=== PATIENT | male | born 1945 | race Caucasian/White ===

== ENCOUNTER 2018-03-16 19:23 | Inpatient (IN) ==
[2018-03-17] MEDS ORDERED: Naloxone 0.4 MG/ML INJ IVP PRN (03:00)
[2018-03-17] MEDS ORDERED: *HR* Promethazine 25 MG/ML VIAL IVP PRN (03:00)
[2018-03-17] MEDS ORDERED: *HR* LORazepam 2 MG/ML VIAL IVP PRN (03:00)
--- NOTE | 2018-03-17 03:17 | Internal Med History&Physical ---
Date of Encounter: 03/17/18 Time of Encounter: 02:30 Internal Medicine - H&P: HPI Chief complaint: seizure Admitted From: Hospital to Hospital Transfer History of present illness: Mr. Soriano is a 73 year old male who presents in transfer from [facility] ER for concerns of new onset seizure. He was in the car with his while she was driving when he was noted to have a seizure as witnessed by his . Reportedly, she pulled over and squad was called and brought him to ER. He was postictal for the squad and the ER initially, but he returned back to baseline shortly after that in the ER. Patient was transferred to [facility] for further workup and care. Upon my assessment of the patient, he is alert, oriented, and in no distress. He denies any problems or concerns at present. However, he does not remember having a seizure and remembers waking up in the ER confused to why he was there and what happened. His med list is not verified, but he did confirm for me that he takes methadone and has been on methadone for quite some time. He is not clear as to what dose or frequency he takes it as prescribed. [facility], and we do not have access to any medical records at the present time. I reviewed his labs from [place] and note the macrocytosis and abnormal liver tests. He states he drinks alcohol heavily on a daily basis. He drinks a pint of liquor every day. However, he has gone almost 2 full days now since his last alcohol intake. He has gone through alcohol withdrawal in the past but he's never had a seizure before. He denies any headaches, fevers, chills, vomiting, diarrhea, numbness, weakness , or paralysis. He is wheelchair and bedridden. He does not have much function in his his left lower extremity due to old injury. He denies any prior old stroke. Past Med Surg Social Fam HX - Past Medical History Attestation: Yes The following information was validated with the patient. Source: patient, other ([facility] ER records) Medical history: COPD, diabetes, hyperlipidemia, hypertension, myocardial infarction Additional medical history: increasing general weakness over past few months, diet controlled dm Psychiatric history: anxiety, depression - Past Surgical History Surgical History: orthopedic, other Additional surgical history: back fusion, pelvis fx repair with plates,bilat shoulder replacements, - Social History Smoking Status: Current every day smoker Packs per day: 1 Smokeless Tobacco Status: No Alcohol use: heavy Drug use: none Current living situation: Home, With Family Activity Level: Wheelchair bound, Mostly sedentary Recent Out of Country Travel Within the Last 8 Weeks: No - Family History Father Name: Jose Armando Soriano Living Status: Age at : 62 Cause of : sudden [place] Internal Medicine - H&P: Meds Acetaminophen w/Cod 300-30 mg [Tylenol w/Codeine #3] 1 each PO Q6HR 03/16/18 [ History] Aspirin Enteric Coated [Aspirin EC] 325 mg PO DAILY 03/16/18 [History] Atorvastatin Calcium [Lipitor] 20 mg PO HS 03/16/18 [History] Diltiazem HCl [Diltiazem 24Hr Cd] 180 mg PO DAILY 03/16/18 [History] Finasteride [Proscar] 5 mg PO DAILY 03/16/18 [History] Folic Acid 1 mg PO DAILY 03/16/18 [History] Furosemide [Lasix] 40 mg PO DAILY PRN 03/16/18 [History] Lisinopril [Zestril] 20 mg PO DAILY 03/16/18 [History] Methadone 50 mg PO Q8HR 03/16/18 [History] Mirtazapine [Remeron] 22.5 mg PO HS 03/16/18 [History] Omeprazole [PriLOSEC] 20 mg PO DAILY 03/16/18 [History] PARoxetine HCl [Paroxetine HCl] 30 mg PO DAILY 03/16/18 [History] Ranolazine [Ranexa] 500 mg PO BID 03/16/18 [History] Tamsulosin HCl [Flomax] 0.4 mg PO DAILY 03/16/18 [History] Venlafaxine HCl [Venlafaxine HCl ER] 75 mg PO DAILY 03/16/18 [History] clonazePAM [Clonazepam] 1 mg PO DAILY PRN 03/16/18 [History] 3 Allergy/AdvReac Type Severity Reaction Status Date / Time pregabalin [From Lyrica] Allergy Hives Verified 03/16/18 17:28 - Constitutional Constitutional: no chills, no fever(s), no malaise - EENT Eyes: no blurry vision, no change in vision Ears: no ear pain, no tinnitus Nose, mouth and throat: no nasal congestion, no sinus pain, no sinus pressure, no sore throat - Cardiovascular Cardiovascular ROS IM: no chest pain, no dyspnea, no dyspnea on exertion, no lightheadedness, no palpitations - Respiratory Respiratory: no cough, no hemoptysis, no chest congestion, no excessive phlegm production, no change in phlegm color - Gastrointestinal Gastrointestinal: no abdominal pain, no diarrhea, no hematemesis, no hematochezia, no melena, no vomiting - Genitourinary Genitourinary ROS male: no dysuria, no flank pain, no hematuria - Musculoskeletal Musculoskeletal ROS IM: arthralgias, back pain - Integumentary Integumentary IM: no rash, no jaundice - Neurological Neurological ROS: convulsions, focal weakness (LLE -- chronic), no dizziness, no frequent falls, no numbness, no paresthesias, no tremor(s) - Psychiatric Psychiatric: no anxiety, no depression - Endocrine Endocrine IM: no polydipsia, no polyuria - Hematologic/Lymphatic Hematologic/Lymphatic: easy bruising - Allergic/Immunologic Allergic/Immunologic: no wheezing, no GI upset with certain foods - Constitutional Vitals: Temp Pulse Resp BP Pulse Ox 98.6 F 82 16 130/82 99 03/17/18 02:56 03/17/18 02:56 03/17/18 02:56 03/17/18 02:56 03/17/18 02:56 General appearance: Present: cooperative, A&O X 3, pleasant, no acute distress, answers questions appropriately Exam: see below - Head Head exam: Present: atraumatic, normal inspection - Eye Eye exam: Present: EOMI, PERRL. Absent: scleral icterus Pupils: Present: normal accommodation - ENT ENT exam: Present: mucous membranes dry, normal exam, normal oropharynx - Neck Neck exam general surgery: Present: full ROM, supple. Absent: tenderness, nuchal rigidity, thyromegaly - Respiratory Respiratory exam: Present: CTAB. Absent: chest wall tenderness, rales, respiratory distress, rhonchi, wheezes - Cardiovascular Cardiovascular exam: Present: RRR, +S1, +S2. Absent: diastolic murmur, systolic murmur - GI/Abdominal GI/Abdominal exam: Present: normal bowel sounds. Absent: hepatomegaly, rebound , splenomegaly, tenderness - Extremities Exam Extremities exam: Present: normal capillary refill, warm, radial pulses palpable and symmetrical. Absent: calf tenderness, full ROM (LLE contracted, weak), tenderness - Back Exam Back exam: Absent: CVA tenderness (L), CVA tenderness (R) - Neurological Exam Neurological exam: Present: alert, CN II-XII intact, motor sensory deficit (LLE weakness-- chronic), oriented X3 - Psychiatric Psychiatric exam: Present: normal affect, normal mood - Skin Skin exam: Present: dry, intact, warm Internal Med - H&P Results - Labs Labs: I reviewed the labs from [place] and include the following: WBC 9.9 Hemoglobin 9.6 Hematocrit 27.4 Platelets 217 Sodium 138 Potassium 3.7 Chloride 100 Carbon Dioxide 25 BUN 28 Creatinine 1.44 Glucose 122 Calcium 7.1 Mg 0.7 AST [address] -- negative - Assessment and plan (1) Seizure Current Visit: Yes Status: Acute Assessment and plan: 1. Suspect alcohol withdrawal seizure given that last alcohol intake was 2 days ago. 2. Will place in seizure precautions. 3. Will place on CIWA protocol and schedule Librium to avoid further withdrawal seizures. 4. Patient received Keppra load at [facility] ER. 5. Neurology consult. 6. MRI brain ordered. (2) Alcoholism Current Visit: Yes Status: Chronic Assessment and plan: 1. CIWA protocol ordered. 2. MVI/Thiamine/Folate ordered. 3. Librium as above. (3) Chronic pain Current Visit: Yes Status: Chronic Assessment and plan: 1. Patient on Methadone for years. Unsure of dose and frequency. 2. Need to confirm meds and dosing [facility] morning with [facility]. 3. Resume Methadone once confirmed. Qualifiers: Chronic pain type: other chronic pain Qualified Code(s): G89.29 - Other chronic pain (4) DVT prophylaxis Current Visit: Yes Status: Acute Assessment and plan: 1. Heparin SQ.
[2018-03-17] MEDS: 0.9 % Sodium Chloride 1,000 ML IVC SCH ×2 (04:09→15:57)
[2018-03-17 07:36] LABS: Basophils % 0.2 %; Eosinophils # 0.1 K/mcL (0.0-0.6); Eosinophils % 0.9 %; Hematocrit 26.6 % (37.5-50.1); Hemoglobin 8.9 g/dL (12.9-16.9); Immature Granulocytes % 0.5 % (0-4); Lymphocytes # 1.7 K/mcL (0.6-4.6); Lymphocytes % 21.4 %; Mean Corpuscular HGB Conc 33.5 g/dL (31.6-35.5); Mean Corpuscular Hemoglobin 36.9 pg (28.0-33.3); Mean Corpuscular Volume 110.4 fL (83.0-100.0); Mean Platelet Volume 10.4 fL (9.4-12.4); Monocytes # 1.1 K/mcL (0.0-1.3); Monocytes % 13.1 %; Neutrophils # 5.1 K/mcL (1.6-8.9); Platelet Count 200 K/mcL (140-400); Red Blood Count 2.41 M/mcL (4.19-5.50); Red Cell Distribution Width 17.6 % (11.5-14.5); Segmented Neutrophils % 63.9 %
[2018-03-17 07:43] LABS: INR 1.2; Prothrombin Time 13.7 Seconds (9.4-12.1)
[2018-03-17 07:45] LABS: Activated Partial Thrombo Time 31.3 Seconds (26.0-36.0)
[2018-03-17 07:57] LABS: Alanine Aminotransferase 34 Units/L (7-52); Albumin 2.5 g/dL (3.5-5.7); Albumin/Globulin Ratio 0.8 (1.1-2.2); Alkaline Phosphatase 123 Units/L (34-104); Aspartate Amino Transferase 48 Units/L (13-39); BUN/Creatinine Ratio 26 (6-26); Blood Urea Nitrogen 24 mg/dL (8-23); Calcium 7.1 mg/dL (8.6-10.3); Carbon Dioxide 26 mEq/L (23-29); Chloride 105 mEq/L (98-107); Glucose 73 mg/dL (70-105); Magnesium 1.4 mg/dL (1.6-2.6); Osmolality,Calculated 295 (280-300); Potassium 3.7 mEq/L (3.5-5.1); Sodium 141 mEq/L (136-145); Total Protein 5.5 g/dL (6.4-8.9); eGFR For Non-African Americans > 60 (> 60)
[2018-03-17 08:38] LABS: Anisocytosis 2+ (Not Present); Platelet Estimate Normal (Normal)
[2018-03-17] MEDS ORDERED: Clindamycin 900 MG/50 ML 900 MG/50 ML IV.SOLN IVPB ONE (10:03)
--- NOTE | 2018-03-17 11:41 | Neurology - Consult Note ---
Date of Encounter: 03/17/18 Time of Encounter: 11:40 Assessment and Plan (1) Seizure Current Visit: Yes Status: Acute 73 year old man with alcoholism, abnormal hepatic enzymes, HTN, depression who developed one episode of witnessed seizure by his , shortly after a small drink of alcohol beverage. Seizure itself lasted few minutes in duration and followed with 10-20 minutes postictal per his . Neurological status returned to his baseline and no focal neuro deficits noted. This could be complicated by his ongoing medical conditions and alcoholism but after discussion with his , especially with the fact that he had drunk one hour prior to the seizure i would suggest to start him on Keppra 500mg bid. He should have CT of head if not already done. Will obtain a routine EEG tomorrow morning. Patient has also significant anemia, currently being addressed by medical team. He is on DT prophylaxis. Please continue medical and supportive care History of Present Illness Chief complaint: seizure HPI: Mr. Soriano is a 73 year old male with PMH significant for chronic pain. HTN , alcoholism, abnormal liver enzymes, anemia, who was admitted to the hospital due to witnessed seizure activity. Patient is interviewed in the presence of his . states that they were in the car and was driving and suddenly she noticed that the patient had a can in his left hand and he lost it and then this was followed by arms drawing up and shaking with his eyes wide open and rolled back. He was shaking for about few minutes and the was confused for another 10-20 minutes prior to came to. He was evaluated at [place] ER and had CT of head. No acute changes noted, chronic ischemic changes noted. Patient was loaded keppra in the ER. states that the patient drank alcohol at 3:00pm and he had the seizure at about 4:00pm so she thinks that he is not in withdrawal. Currently patient is back to his mental baseline. Patient has developed weakness in his legs rapidly from able to walk normal to barely able to move his legs. He had MRI of whole spine at [place] few days and was seen by ortho who recommended that he sees a neurologist. Patient has significant anemia. Past Med Surg Social Fam HX - Past Medical History Medical history: COPD, diabetes, hyperlipidemia, hypertension, myocardial infarction Additional medical history: increasing general weakness over past few months, diet controlled dm Psychiatric history: anxiety, depression - Past Surgical History Surgical History: orthopedic, other Additional surgical history: back fusion, pelvis fx repair with plates,bilat shoulder replacements, - Social History Smoking Status: Current every day smoker Packs per day: 1 Smokeless Tobacco Status: No Alcohol use: heavy Drug use: none - Family History Father Name: Jose Armando Soriano Living Status: Age at : 62 Cause of : sudden CT Medications and Allergies Acetaminophen w/Cod 300-30 mg [Tylenol w/Codeine #3] 1 each PO Q6HR 03/16/18 [ History] Aspirin Enteric Coated [Aspirin EC] 325 mg PO DAILY 03/16/18 [History] Atorvastatin Calcium [Lipitor] 20 mg PO HS 03/16/18 [History] Diltiazem HCl [Diltiazem 24Hr Cd] 180 mg PO DAILY 03/16/18 [History] Finasteride [Proscar] 5 mg PO DAILY 03/16/18 [History] Folic Acid 1 mg PO DAILY 03/16/18 [History] Furosemide [Lasix] 40 mg PO BID PRN 03/16/18 [History] Lisinopril [Zestril] 20 mg PO DAILY 03/16/18 [History] Methadone 10 mg PO Q8HR 03/16/18 [History] Mirtazapine [Remeron] 22.5 mg PO HS 03/16/18 [History] Omeprazole [PriLOSEC] 20 mg PO DAILY 03/16/18 [History] PARoxetine HCl [Paroxetine HCl] 30 mg PO DAILY 03/16/18 [History] Ranolazine [Ranexa] 500 mg PO BID 03/16/18 [History] Tamsulosin HCl [Flomax] 0.4 mg PO DAILY 03/16/18 [History] Venlafaxine HCl [Venlafaxine HCl ER] 75 mg PO DAILY 03/16/18 [History] clonazePAM [Clonazepam] 1 mg PO DAILY PRN 03/16/18 [History] Baclofen [Lioresal] 10 mg PO BID 03/17/18 [History] Ferrous Sulfate [Iron] 325 mg PO DAILY 03/17/18 [History] Lactobacillus Acidophilus [Acidophilus] 1 cap PO DAILY 03/17/18 [History] Melatonin [Melatonin] 9 mg PO HS 03/17/18 [History] Multivitamin [One Daily Essential] 1 tab PO DAILY 03/17/18 [History] 3 Allergy/AdvReac Type Severity Reaction Status Date / Time pregabalin [From Lyrica] Allergy Hives Verified 03/17/18 11:33 All Systems: The remainder of the systems were reviewed and are negative Physical Examination - Vital Signs Vital Signs: Initial Vital Signs Temp Pulse Resp BP Pulse Ox 98.0 F 71 16 131/80 100 03/16/18 21:54 03/16/18 21:54 03/16/18 21:54 03/16/18 21:54 03/16/18 21:54 - Constitutional General appearance: chronically ill - Neurologic Sensorimotor examination: other (Grossly intact) Detailed motor examination: full strength in all major muscle groups Motor examination - right side: 5/5: deltoids, biceps, triceps, wrist flexion, wrist extension, golf ball inspector, hip flexors, tibialis Anterior, quadriceps, toe extension (EHL), plantarflexion Motor examination - left side: 5/5: deltoids, biceps, triceps, wrist flexion, wrist extension, hip flexors, golf ball inspector, quadriceps, tibialis Anterior, toe extension (EHL), plantarflexion Detailed sensory examination: other (Grossly intact) Reflexes: Biceps: 2+, Triceps: 2+, Brachioradialis: 2+, Patella: 2+, Achilles: 2 + Mental Status Examination: awake, alert, oriented to person, oriented to place, oriented to time, follows commands appropriately, answers questions appropriately, no agnosia, no aphasia, no aproxia Cranial nerve examination: PERRL, EOMI, visual maynard intact, corneal reflexes brisk symmetrically, sensory to face intact, mastication intact, no facial asymmetry is present, no dysarthria, hearing is intact symmetrically, soft palate elevates bilaterally upon phonation, gag reflex intact, flexes SCM and trapezius muscles symmetrically with full power, tongue protrudes midline, no atrophy or facial fasiculations present Results - Laboratory Findings CBC and BMP: 03/17/18 06:47 03/17/18 06:47 Abnormal lab findings: Abnormal lab results RBC 2.41 M/mcL (4.19-5.50) L 03/17/18 06:47 Hgb 8.9 g/dL (12.9-16.9) L 03/17/18 06:47 Hct 26.6 % (37.5-50.1) L 03/17/18 06:47 MCV 110.4 fL (83.0-100.0) H 03/17/18 06:47 MCH 36.9 pg (28.0-33.3) H 03/17/18 06:47 RDW 17.6 % (11.5-14.5) H 03/17/18 06:47 Anisocytosis 2+ (Not Present) A 03/17/18 06:47 PT 13.7 Seconds (9.4-12.1) H 03/17/18 06:47 BUN 24 mg/dL (8-23) H 03/17/18 06:47 Calcium 7.1 mg/dL (8.6-10.3) L 03/17/18 06:47 Magnesium 1.4 mg/dL (1.6-2.6) L 03/17/18 06:47 AST 48 Units/L (13-39) H 03/17/18 06:47 Alkaline Phosphatase 123 Units/L (34-104) H 03/17/18 06:47 Serum Total Protein 5.5 g/dL (6.4-8.9) L 03/17/18 06:47 Albumin 2.5 g/dL (3.5-5.7) L 03/17/18 06:47 Albumin/Globulin Ratio 0.8 (1.1-2.2) L 03/17/18 06:47 Consult Discharge Plan - Plan [facility]: [facility] [Primary Care Provider[facility] -
[2018-03-17] MEDS ORDERED: clonazePAM 1 MG TABLET PO PRN (12:36)
--- NOTE | 2018-03-17 12:44 | Event Note ---
Date of Encounter: 03/17/18 Time of Encounter: 12:41 Checking CBC and renal daily. Seen by neurology. Hx alcoholism. Continue librium and CIWA Anemia likely due to chronic ETOH. Will stool occult.
[2018-03-17] MEDS: *HR* Methadone 10 MG TABLET PO SCH (15:57)
[2018-03-17] MEDS: levETIRAcetam 250 MG TABLET PO SCH (17:22)
[2018-03-17] MEDS: Thiamine (B-1) 100 MG, Folic Acid 1 MG, MVI, adult with vitamin K 10 ML in 0.9 % Sodi... IVPB SCH (17:25)
[2018-03-17] MEDS: Mirtazapine 15 MG TABLET PO SCH (21:54)
[2018-03-17] MEDS: Ranolazine 500 MG TAB.ER.12H PO SCH (21:55)
[2018-03-17] MEDS: Melatonin 3 MG TABLET PO SCH (21:55)
[2018-03-17] MEDS: Baclofen 10 MG TABLET PO SCH (21:55)
[2018-03-18] MEDS: levETIRAcetam 250 MG TABLET PO SCH ×2 (05:51→17:06)
[2018-03-18 06:21] LABS: Basophils % 0.1 %; Eosinophils # 0.1 K/mcL (0.0-0.6); Eosinophils % 1.3 %; Hematocrit 26.6 % (37.5-50.1); Immature Granulocytes % 0.6 % (0-4); Lymphocytes # 1.4 K/mcL (0.6-4.6); Lymphocytes % 16.2 %; Mean Corpuscular HGB Conc 33.8 g/dL (31.6-35.5); Mean Corpuscular Hemoglobin 38.6 pg (28.0-33.3); Mean Corpuscular Volume 114.2 fL (83.0-100.0); Mean Platelet Volume 10.4 fL (9.4-12.4); Monocytes % 13.7 %; Neutrophils # 5.7 K/mcL (1.6-8.9); Platelet Count 182 K/mcL (140-400); Red Blood Count 2.33 M/mcL (4.19-5.50); Red Cell Distribution Width 17.2 % (11.5-14.5); Segmented Neutrophils % 68.1 %
[2018-03-18 06:28] LABS: Monocytes # 1.2 K/mcL (0.0-1.3)
[2018-03-18 06:37] LABS: Albumin 2.3 g/dL (3.5-5.7); BUN/Creatinine Ratio 21 (6-26); Blood Urea Nitrogen 15 mg/dL (8-23); Calcium 7.2 mg/dL (8.6-10.3); Carbon Dioxide 26 mEq/L (23-29); Chloride 108 mEq/L (98-107); Glucose 83 mg/dL (70-105); Osmolality,Calculated 288 (280-300); Phosphorous 1.7 mg/dL (2.7-4.5); Potassium 3.3 mEq/L (3.5-5.1); Sodium 139 mEq/L (136-145); eGFR For Non-African Americans > 60 (> 60)
[2018-03-18 06:48] LABS: Anisocytosis 1+ (Not Present); Hypochromasia Present (Not Present); Macrocytosis Present (Not Present); Microcytosis Present (Not Present); Platelet Estimate Normal (Normal); Polychromasia 1+ (Not Present)
[2018-03-18] MEDS: Ranolazine 500 MG TAB.ER.12H PO SCH ×2 (07:25→20:37)
[2018-03-18] MEDS: *HR* Methadone 10 MG TABLET PO SCH ×4 (07:26→23:16)
[2018-03-18] MEDS: Finasteride 5 MG TABLET PO SCH (07:26)
[2018-03-18] MEDS: Lisinopril 20 MG TABLET PO SCH (07:26)
[2018-03-18] MEDS: Aspirin Enteric Coated 325 MG Tablet PO SCH (07:26)
[2018-03-18] MEDS: Diltiazem CD (24hr) 180 MG CAPSULE PO SCH (07:26)
[2018-03-18] MEDS: Venlafaxine XR (24 HR) 75 MG CAP.ER.24H PO SCH (07:26)
[2018-03-18] MEDS: Baclofen 10 MG TABLET PO SCH ×2 (07:39→20:37)
[2018-03-18] MEDS ORDERED: Calcium Gluconate 2,000 MG in 0.9 % Sodium Chloride 100 ML IVPB ONE (10:36)
[2018-03-18 11:00] LABS: VBG Ionized Calcium 0.94 mmol/L (1.15-1.35)
--- NOTE | 2018-03-18 12:31 | Neurology Progress Note ---
Date of Encounter: 03/18/18 Time of Encounter: 12:29 Assessment and Plan (1) Seizure Current Visit: Yes Status: Acute One seizure activity likely provoked since he does have history of alcoholism, severe anemia and hepatic enzyme elevation. Mental status at baseline but reported by nursing staff to have on and off confusion. Would agree to obtain MRI of brain without contrast to rule out intracranial abnormality. Keep on Keppr a500mg bid. Please continue medical and supportive. If MRI of brain returns negative for acute abnormality, patient can be discharged from neurology perspective. Subjective Principal diagnosis: seizure and confusion Interval history: Patient seen and examined. He is wide awake and alert and reports no recurrent seizures. He is on keppra 50mg bid. Was told by the nursing staff that she was a little confused, on and off. feels that he has been doing okay. Is waiting for MRI of brain without contrast Objective - Constitutional Vitals: Temp Pulse Resp BP Pulse Ox 97.9 F 93 15 134/68 97 03/18/18 12:24 03/18/18 12:24 03/18/18 12:24 03/18/18 12:24 03/18/18 12:24 - Neurological Exam Sensorimotor examination: Present: other (Grossly intact) Motor Examination: Present: full strength in all major muscle groups, other ( Weakness in his legs) Motor examination - right side: 4/5: hip flexors, tibialis Anterior, quadriceps , toe extension (EHL), plantarflexion, 5/5: deltoids, biceps, triceps, wrist flexion, wrist extension, advanced manufacturing consultant Motor examination - left side: 4/5: quadriceps, tibialis Anterior, toe extension (EHL), plantarflexion, 5/5: deltoids, biceps, triceps, wrist flexion, wrist extension, hip flexors, advanced manufacturing consultant Sensation intact: Present: other (Grossly intact) Posture: Present: other (Lean onto the be, no rigidity. ) Reflex and gait examination: other (Gai not tested) Reflexes: Biceps: 2+, Triceps: 2+, Brachioradialis: 2+, Patella: 2+, Achilles: 2 + Mental Status Examination: Present: awake, alert, oriented to person, oriented to place, oriented to time, follows commands appropriately, answers questions appropriately, no agnosia, no aphasia, no aproxia Cranial nerve examination: Present: PERRL, EOMI, visual maynard intact, corneal reflexes brisk symmetrically, sensory to face intact, mastication intact, no facial asymmetry is present, no dysarthria, hearing is intact symmetrically, soft palate elevates bilaterally upon phonation, gag reflex intact, flexes SCM and trapezius muscles symmetrically with full power, tongue protrudes midline, no atrophy or facial fasiculations present Results - Laboratory Findings CBC and BMP: 03/18/18 04:43 03/18/18 04:43 Abnormal lab findings: Abnormal lab results RBC 2.33 M/mcL (4.19-5.50) L 03/18/18 04:43 Hgb 9.0 g/dL (12.9-16.9) L 03/18/18 04:43 Hct 26.6 % (37.5-50.1) L 03/18/18 04:43 MCV 114.2 fL (83.0-100.0) H 03/18/18 04:43 MCH 38.6 pg (28.0-33.3) H 03/18/18 04:43 RDW 17.2 % (11.5-14.5) H 03/18/18 04:43 Polychromasia 1+ (Not Present) A 03/18/18 04:43 Hypochromasia Present (Not Present) A 03/18/18 04:43 Anisocytosis 1+ (Not Present) A 03/18/18 04:43 Microcytosis Present (Not Present) A 03/18/18 04:43 Macrocytosis Present (Not Present) A 03/18/18 04:43 PT 13.7 Seconds (9.4-12.1) H 03/17/18 06:47 Potassium 3.3 mEq/L (3.5-5.1) L 03/18/18 04:43 Chloride 108 mEq/L (98-107) H 03/18/18 04:43 POC Glucose 198 mg/dL (70-99) H 03/17/18 20:40 Calcium 7.2 mg/dL (8.6-10.3) L 03/18/18 04:43 Venous Ioniz Calcium 0.94 mmol/L (1.15-1.35) L 03/18/18 10:57 Phosphorus 1.7 mg/dL (2.7-4.5) L 03/18/18 04:43 Magnesium 1.5 mg/dL (1.6-2.6) L 03/18/18 10:49 AST 48 Units/L (13-39) H 03/17/18 06:47 Alkaline Phosphatase 123 Units/L (34-104) H 03/17/18 06:47 Serum Total Protein 5.5 g/dL (6.4-8.9) L 03/17/18 06:47 Albumin 2.3 g/dL (3.5-5.7) L 03/18/18 04:43 Albumin/Globulin Ratio 0.8 (1.1-2.2) L 03/17/18 06:47 Consult Discharge Plan - Plan [facility]errals: [facility] [Primary Care Provider[facility] -
[2018-03-18 15:07] LABS: Phosphorous 2.1 mg/dL (2.7-4.5); Potassium 4.1 mEq/L (3.5-5.1)
[2018-03-18] MEDS: Thiamine (B-1) 100 MG, Folic Acid 1 MG, MVI, adult with vitamin K 10 ML in 0.9 % Sodi... IVPB SCH (17:07)
[2018-03-18] MEDS: Melatonin 3 MG TABLET PO SCH (20:37)
[2018-03-18] MEDS: Mirtazapine 15 MG TABLET PO SCH (20:37)
--- NOTE | 2018-03-18 21:03 | Internal Med Progress Note ---
Hospitalist Progress Note - Encounter Date of Encounter: 03/18/18 Time of Encounter: 18:23 - Subjective Interval History: Today pt wheezing and having some conversational dyspnea today. Chronically on oxygen at home. - Exam Vitals: Temp Pulse Resp BP Pulse Ox 97.8 F 81 16 135/85 94 03/18/18 18:31 03/18/18 18:31 03/18/18 18:31 03/18/18 18:31 03/18/18 18:31 Exam: General appearance: Present: cooperative, A&O X 3, pleasant, no acute distress, answers questions appropriately Exam: see below - Head Head exam: Present: atraumatic, normal inspection - Eye Eye exam: Present: EOMI, PERRL. Absent: scleral icterus Pupils: Present: normal accommodation - ENT ENT exam: Present: mucous membranes dry, normal exam, normal oropharynx - Neck Neck exam general surgery: Present: full ROM, supple. Absent: tenderness, nuchal rigidity, thyromegaly - Respiratory Respiratory exam: Present: Wheezing bilaterally. Absent: chest wall tenderness , rales, respiratory distress, and rhonchi. - Cardiovascular Cardiovascular exam: Present: RRR, +S1, +S2. Absent: diastolic murmur, systolic murmur - GI/Abdominal GI/Abdominal exam: Present: normal bowel sounds. Absent: hepatomegaly, rebound , splenomegaly, tenderness - Extremities Exam Extremities exam: Present: normal capillary refill, warm, radial pulses palpable and symmetrical. Absent: calf tenderness, full ROM (LLE contracted, weak), tenderness - Back Exam Back exam: Absent: CVA tenderness (L), CVA tenderness (R) - Neurological Exam Neurological exam: Present: alert, CN II-XII intact, motor sensory deficit (LLE weakness-- chronic), oriented X3 - Psychiatric Psychiatric exam: Present: normal affect, normal mood - Skin Skin exam: Present: dry, intact, warm - Assessment and Plan (1) COPD exacerbation Current Visit: Yes Status: Acute Assessment and Plan: Pt wheezing and SOB today. Will place on scheduled nebs and taper steroid. Will check CXR. (2) Chronic respiratory failure Current Visit: Yes Status: Acute Assessment and Plan: Pt is on oxygen 2L NC 15/01. (3) Seizure Current Visit: Yes Status: Acute Assessment and Plan: 1. Alcohol withdrawal seizure given that last alcohol intake was 2 days ago. 2. On seizure precautions. 3. On CIWA protocol and schedule Librium to avoid further withdrawal seizures. 4. Patient received Keppra load at [facility] ER. 5. Neurology consulted and recommends continue with Keppra. 6. MRI brain neg for acute CVA. MRI MR/MR head/brain wo con IMPRESSION: No acute infarct, intracranial hemorrhage, or significant mass effect. No specific seizure focus is identified. Diffusely T1 hypointense marrow signal within the upper cervical spine. Findings may represent marrow involving or marrow replacing processes such as osteopenia, smoking, anemia, and obesity. (4) Alcoholism Current Visit: Yes Status: Chronic Assessment and Plan: 1. CIWA protocol ordered. 2. MVI/Thiamine/Folate ordered. 3. Librium as above. (5) Chronic pain Current Visit: Yes Status: Chronic Assessment and Plan: 1. Patient on Methadone for years. Unsure of dose and frequency. 2. [facility] 3. Resume Methadone once confirmed. DVT Prophylaxis: Lovenox - Summary of Assessment and Plan Summary of Assessment and Plan: Mr. Soriano is a 73 year old male who presents in transfer from [facility] ER for concerns of new onset seizure. He was in the car with his while she was driving when he was noted to have a seizure as witnessed by his . Reportedly, she pulled over and squad was called and brought him to ER. - Time Spent with Patient Total time spent is greater than 50% in coordination of care (as documented) at patient's floor/unit and/or counseling patient: less than 15 minutes Plan of Care Discussed with: patient Internal Medicine: Result - Labs CBC & Chem 7: 03/18/18 04:43 03/18/18 14:25 Labs: Short CBC 03/18/18 Range/Units 04:43 WBC 8.4 (4.3-11.1) K/mcL Hgb 9.0 L (12.9-16.9) g/dL Hct 26.6 L (37.5-50.1) % Plt Count 182 (140-400) K/mcL Neutrophils # 5.7 (1.6-8.9) K/mcL BMP 03/18/18 03/18/18 04:43 14:25 Sodium 139 Potassium 3.3 L 4.1 Chloride 108 H Carbon Dioxide 26 BUN 15 Creatinine 0.72 Glucose 83 Calcium 7.2 L 8.0 L Liver Function 03/18/18 Range/Units 04:43 Albumin 2.3 L (3.5-5.7) g/dL - ABG Interpretation ABG results: PT/INR, D-dimer PT 13.7 Seconds (9.4-12.1) H 03/17/18 06:47 - Impressions Impressions Brain MRI 03/17/18 03:00 IMPRESSION: No acute infarct, intracranial hemorrhage, or significant mass effect. No specific seizure focus is identified. Diffusely T1 hypointense marrow signal within the upper cervical spine. Findings may represent marrow involving or marrow replacing processes such S osteopenia, smoking, anemia, and obesity. D/ / Gianni Fink MD / Gianni Fink MD Interpreting Provider: Gianni Fink MD Consult Discharge Plan - Plan [facility]errals: [facility] [Primary Care Provider] - (5) Chronic pain Qualifiers: Chronic pain type: other chronic pain Qualified Code(s): G89.29 - Other chronic pain
[2018-03-18] MEDS ORDERED: Ipratropium/Albuterol Neb 3 ML IH PRN (21:13)
[2018-03-18] MEDS: MethylPREDNISolone 40 MG/ML VIAL IVP SCH (23:16)
[2018-03-18] MEDS: Ipratropium/Albuterol Neb 3 ML IH SCH (23:21)
[2018-03-19] MEDS: Ipratropium/Albuterol Neb 3 ML IH SCH ×7 (04:16→21:09)
[2018-03-19 04:22] LABS: Basophils % 0.1 %; Eosinophils % 0.3 %; Hematocrit 25.8 % (37.5-50.1); Hemoglobin 8.5 g/dL (12.9-16.9); Immature Granulocytes % 0.7 % (0-4); Lymphocytes # 0.3 K/mcL (0.6-4.6); Lymphocytes % 4.9 %; Mean Corpuscular HGB Conc 32.9 g/dL (31.6-35.5); Mean Corpuscular Hemoglobin 37.4 pg (28.0-33.3); Mean Corpuscular Volume 113.7 fL (83.0-100.0); Mean Platelet Volume 10.7 fL (9.4-12.4); Monocytes # 0.3 K/mcL (0.0-1.3); Monocytes % 4.3 %; Neutrophils # 6.2 K/mcL (1.6-8.9); Platelet Count 168 K/mcL (140-400); Red Blood Count 2.27 M/mcL (4.19-5.50); Segmented Neutrophils % 89.7 %
[2018-03-19 04:32] LABS: Albumin 2.2 g/dL (3.5-5.7); BUN/Creatinine Ratio 22 (6-26); Blood Urea Nitrogen 15 mg/dL (8-23); Calcium 7.6 mg/dL (8.6-10.3); Carbon Dioxide 22 mEq/L (23-29); Chloride 110 mEq/L (98-107); Glucose 221 mg/dL (70-105); Osmolality,Calculated 294 (280-300); Phosphorous 2.2 mg/dL (2.7-4.5); Potassium 4.2 mEq/L (3.5-5.1); Sodium 138 mEq/L (136-145); eGFR For Non-African Americans > 60 (> 60)
[2018-03-19] MEDS: levETIRAcetam 250 MG TABLET PO SCH ×2 (05:17→17:11)
[2018-03-19] MEDS: MethylPREDNISolone 40 MG/ML VIAL IVP SCH ×2 (05:17→17:10)
[2018-03-19 05:24] LABS: Anisocytosis 1+ (Not Present); Hypochromasia Present (Not Present); Macrocytosis Present (Not Present); Platelet Estimate Normal (Normal)
[2018-03-19 08:10] LABS: Magnesium 1.3 mg/dL (1.6-2.6)
[2018-03-19] MEDS: Aspirin Enteric Coated 325 MG Tablet PO SCH (08:39)
[2018-03-19] MEDS: Ranolazine 500 MG TAB.ER.12H PO SCH ×2 (08:39→20:51)
[2018-03-19] MEDS: Finasteride 5 MG TABLET PO SCH (08:39)
[2018-03-19] MEDS: Diltiazem CD (24hr) 180 MG CAPSULE PO SCH (08:39)
[2018-03-19] MEDS: Venlafaxine XR (24 HR) 75 MG CAP.ER.24H PO SCH (08:39)
[2018-03-19] MEDS: Baclofen 10 MG TABLET PO SCH (08:39)
[2018-03-19] MEDS: *HR* Methadone 10 MG TABLET PO SCH (08:40)
[2018-03-19] MEDS: Lisinopril 20 MG TABLET PO SCH (08:40)
--- NOTE | 2018-03-19 09:18 | Internal Med Progress Note ---
Hospitalist Progress Note - Encounter Date of Encounter: 03/19/18 Time of Encounter: 09:14 - Subjective Interval History: Patient seen and examined at bedside Currently denies any pain or discomfort. Currently sleeping arouses to verbal stimuli - Exam Vitals: Temp Pulse Resp BP Pulse Ox 98.0 F 65 16 127/79 97 03/19/18 07:20 03/19/18 07:20 03/19/18 08:03 03/19/18 07:20 03/19/18 08:03 Exam: General appearance: Present: groggy arouses to verbal stimuli pleasant, no acute distress, answers questions appropriately Exam: see below - Head Head exam: Present: atraumatic, normal inspection - Eye Eye exam: Present: EOMI, PERRL. Absent: scleral icterus Pupils: Present: normal accommodation - ENT ENT exam: Present: mucous membranes dry, normal exam, normal oropharynx - Neck Neck exam general surgery: Present: full ROM, supple. Absent: tenderness, nuchal rigidity, thyromegaly - Respiratory Respiratory exam: Present: Wheezing bilaterally. Absent: chest wall tenderness , rales, respiratory distress, and rhonchi. - Cardiovascular Cardiovascular exam: Present: RRR, +S1, +S2. Absent: diastolic murmur, systolic murmur - GI/Abdominal GI/Abdominal exam: Present: normal bowel sounds. Absent: hepatomegaly, rebound , splenomegaly, tenderness - Extremities Exam Extremities exam: Present: normal capillary refill, warm, radial pulses palpable and symmetrical. Absent: calf tenderness, full ROM (LLE contracted, weak), tenderness - Back Exam Back exam: Absent: CVA tenderness (L), CVA tenderness (R) - Neurological Exam Neurological exam: Present: groggy, CN II-XII intact, motor sensory deficit ( LLE weakness-- chronic), oriented X3 - Psychiatric Psychiatric exam: Present: normal affect, normal mood - Skin Skin exam: Present: dry, intact, warm - Assessment and Plan (1) Seizure Current Visit: Yes Status: Acute Assessment and Plan: 1. Suspect alcohol withdrawal seizure given that last alcohol intake was 2 days prior to incident 2. Will place in seizure precautions. 3. Will place on CIWA protocol and schedule Librium to avoid further withdrawal seizures. 4. Patient received Keppra - will cont at this time per neurology neurology recommendations 5. Neurology consulted and appreciate recommendations 6. MRI brain with no acute infarct no specific seizure focus identified (2) Alcoholism Current Visit: Yes Status: Chronic Assessment and Plan: 1. CIWA protocol ordered. 2. MVI/Thiamine/Folate ordered. 3. Librium as above. (3) Chronic pain Current Visit: Yes Status: Chronic Assessment and Plan: 1. Patient is very groggy today he was resumed on his home methadone hold for now and make when necessary-he is receiving several sedating medications (4) DVT prophylaxis Current Visit: Yes Status: Acute Assessment and Plan: 1. SCD (5) Anemia Current Visit: Yes Status: Acute Assessment and Plan: Most likely chronic disease currently stable -we will obtain stool for occult blood. Anemia profile. Monitor for any bleeding - Time Spent with Patient Total time spent is greater than 50% in coordination of care (as documented) at patient's floor/unit and/or counseling patient: Internal Medicine: Result - Labs CBC & Chem 7: 03/19/18 03:45 03/19/18 03:45 Labs: Short CBC 03/19/18 Range/Units 03:45 WBC 6.9 (4.3-11.1) K/mcL Hgb 8.5 L (12.9-16.9) g/dL Hct 25.8 L (37.5-50.1) % Plt Count 168 (140-400) K/mcL Neutrophils # 6.2 (1.6-8.9) K/mcL BMP 03/18/18 03/19/18 14:25 03:45 Sodium 138 Potassium 4.1 4.2 Chloride 110 H Carbon Dioxide 22 L BUN 15 Creatinine 0.67 L Glucose 221 H Calcium 8.0 L 7.6 L Liver Function 03/19/18 Range/Units 03:45 Albumin 2.2 L (3.5-5.7) g/dL - ABG Interpretation ABG results: PT/INR, D-dimer PT 13.7 Seconds (9.4-12.1) H 03/17/18 06:47 - Impressions Impressions Brain MRI 03/17/18 03:00 IMPRESSION: No acute infarct, intracranial hemorrhage, or significant mass effect. No specific seizure focus is identified. Diffusely T1 hypointense marrow signal within the upper cervical spine. Findings may represent marrow involving or marrow replacing processes such as osteopenia, smoking, anemia, and obesity. D/ / 03/18/2018 20:51:22 Gianni Fink MD / bcarter Interpreting Provider: Gianni Fink MD Chest X-Ray 03/18/18 21:04 IMPRESSION: Mild pulmonary vascular congestion. Low lung volumes. Minimal right pleural effusion. D/ / Louis Cerrato MD / Louis Cerrato MD Interpreting Provider: Louis Cerrato MD Consult Discharge Plan - Plan [facility]errals: [facility] [Primary Care Provider] - (3) Chronic pain Qualifiers: Chronic pain type: other chronic pain Qualified Code(s): G89.29 - Other chronic pain (5) Anemia Qualifiers: Anemia type: unspecified type Qualified Code(s): D64.9 - Anemia, unspecified
[2018-03-19] MEDS ORDERED: *HR* LORazepam 2 MG/ML VIAL IVP PRN ×2 (11:31)
[2018-03-19] MEDS ORDERED: Albuterol 2.5 MG/3 ML NEBULIZER IH PRN (11:32)
[2018-03-19] MEDS ORDERED: *HR* Methadone 10 MG TABLET PO PRN (12:37)
[2018-03-19] MEDS: Thiamine (B-1) 100 MG, Folic Acid 1 MG, MVI, adult with vitamin K 10 ML in 0.9 % Sodi... IVPB SCH (17:11)
[2018-03-19] MEDS: Mirtazapine 15 MG TABLET PO SCH (20:51)
[2018-03-20] MEDS: Ipratropium/Albuterol Neb 3 ML IH SCH ×6 (00:19→20:23)
[2018-03-20 05:32] LABS: Hematocrit 25.1 % (37.5-50.1); Hemoglobin 8.3 g/dL (12.9-16.9); Lymphocytes # 0.5 K/mcL (0.6-4.6); Lymphocytes % 5.9 %; Mean Corpuscular HGB Conc 33.1 g/dL (31.6-35.5); Mean Corpuscular Hemoglobin 38.2 pg (28.0-33.3); Mean Corpuscular Volume 115.7 fL (83.0-100.0); Mean Platelet Volume 11.3 fL (9.4-12.4); Monocytes # 0.7 K/mcL (0.0-1.3); Monocytes % 9.2 %; Neutrophils # 6.6 K/mcL (1.6-8.9); Platelet Count 184 K/mcL (140-400); Red Blood Count 2.17 M/mcL (4.19-5.50); Red Cell Distribution Width 16.9 % (11.5-14.5); Segmented Neutrophils % 83.9 %
[2018-03-20] MEDS: MethylPREDNISolone 40 MG/ML VIAL IVP SCH ×2 (05:43→20:15)
[2018-03-20] MEDS: levETIRAcetam 250 MG TABLET PO SCH ×2 (05:43→18:58)
[2018-03-20 05:50] LABS: Albumin 2.3 g/dL (3.5-5.7); BUN/Creatinine Ratio 25 (6-26); Blood Urea Nitrogen 17 mg/dL (8-23); Calcium 8.2 mg/dL (8.6-10.3); Carbon Dioxide 22 mEq/L (23-29); Chloride 111 mEq/L (98-107); Glucose 222 mg/dL (70-105); Osmolality,Calculated 298 (280-300); Phosphorous 2.1 mg/dL (2.7-4.5); Potassium 3.9 mEq/L (3.5-5.1); Sodium 140 mEq/L (136-145); eGFR For Non-African Americans > 60 (> 60)
[2018-03-20 06:59] LABS: Macrocytosis Present (Not Present); Platelet Estimate Normal (Normal)
[2018-03-20 08:27] LABS: Immature Reticulocyte % 17.2 % (11.0-38.0); Retculocyte # 0.04 M/mcL (0.05-0.10); Reticulocyte % 1.8 % (1.6-2.8)
--- NOTE | 2018-03-20 08:36 | Internal Med Progress Note ---
Hospitalist Progress Note - Encounter Date of Encounter: 03/20/18 Time of Encounter: 08:36 - Subjective Interval History: Patient seen and examined at bedside Currently denies any pain or discomfort - More alert sitting up in bed eating breakfast- oriented to name only - Exam Vitals: Temp Pulse Resp BP Pulse Ox 97.6 F 68 16 113/74 97 03/20/18 07:04 03/20/18 07:04 03/20/18 07:35 03/20/18 07:04 03/20/18 07:35 Exam: General appearance: Present: groggy arouses to verbal stimuli pleasant, no acute distress, answers questions appropriately Exam: see below - Head Head exam: Present: atraumatic, normal inspection - Eye Eye exam: Present: EOMI, PERRL. Absent: scleral icterus Pupils: Present: normal accommodation - ENT ENT exam: Present: mucous membranes dry, normal exam, normal oropharynx - Neck Neck exam general surgery: Present: full ROM, supple. Absent: tenderness, nuchal rigidity, thyromegaly - Respiratory Respiratory exam: Present: Wheezing bilaterally. Absent: chest wall tenderness , rales, respiratory distress, and rhonchi. - Cardiovascular Cardiovascular exam: Present: RRR, +S1, +S2. Absent: diastolic murmur, systolic murmur - GI/Abdominal GI/Abdominal exam: Present: normal bowel sounds. Absent: hepatomegaly, rebound , splenomegaly, tenderness - Extremities Exam Extremities exam: Present: normal capillary refill, warm, radial pulses palpable and symmetrical. Absent: calf tenderness, full ROM (LLE contracted, weak), tenderness - Back Exam Back exam: Absent: CVA tenderness (L), CVA tenderness (R) - Neurological Exam Neurological exam: Present: groggy, CN II-XII intact, motor sensory deficit ( LLE weakness-- chronic), oriented X3 - Psychiatric Psychiatric exam: Present: normal affect, normal mood - Skin Skin exam: Present: dry, intact, warm - Assessment and Plan (1) Seizure Current Visit: Yes Status: Acute Assessment and Plan: 1. Suspect alcohol withdrawal seizure given that last alcohol intake was 2 days prior to incident - no seizures at this time 2. Will place in seizure precautions. 3. Will place on CIWA protocol and schedule Librium to avoid further withdrawal seizures. 4. Patient received Keppra - will cont at this time per neurology neurology recommendations 5. Neurology consulted and appreciate recommendations 6. MRI brain with no acute infarct no specific seizure focus identified (2) Alcoholism Current Visit: Yes Status: Chronic Assessment and Plan: 1. CIWA protocol ordered. 2. MVI/Thiamine/Folate ordered. 3. Librium will decrease (3) Chronic pain Current Visit: Yes Status: Chronic Assessment and Plan: 1. Patient is more alert - cont with methadone PRN- discontinue baclophen for now (4) DVT prophylaxis Current Visit: Yes Status: Acute Assessment and Plan: 1. SCD (5) Anemia Current Visit: Yes Status: Acute Assessment and Plan: Most likely chronic disease currently stable -we will obtain stool for occult blood. Anemia profile. Monitor for any bleeding- cont iron supplement MVI DVT Prophylaxis: Lovenox - Time Spent with Patient Total time spent is greater than 50% in coordination of care (as documented) at patient's floor/unit and/or counseling patient: Internal Medicine: Result - Labs CBC & Chem 7: 03/20/18 04:06 03/20/18 04:06 Labs: Short CBC 03/20/18 Range/Units 04:06 WBC 7.9 (4.3-11.1) K/mcL Hgb 8.3 L (12.9-16.9) g/dL Hct 25.1 L (37.5-50.1) % Plt Count 184 (140-400) K/mcL Neutrophils # 6.6 (1.6-8.9) K/mcL BMP 03/20/18 04:06 Sodium 140 Potassium 3.9 Chloride 111 H Carbon Dioxide 22 L BUN 17 Creatinine 0.68 L Glucose 222 H Calcium 8.2 L Liver Function 03/20/18 Range/Units 04:06 Albumin 2.3 L (3.5-5.7) g/dL - ABG Interpretation ABG results: PT/INR, D-dimer PT 13.7 Seconds (9.4-12.1) H 03/17/18 06:47 - Impressions Impressions Brain MRI 03/17/18 03:00 IMPRESSION: 1. No acute infarct, intracranial hemorrhage, or significant mass effect. 2. No specific seizure focus is identified. 3. Diffusely T1 hypointense marrow signal within the upper cervical spine. Findings may represent marrow involving or marrow replacing processes such as osteopenia, smoking, anemia, and obesity. D/ / 03/18/2018 20:51:22 Gianni Fink MD / dale Interpreting Provider: Gianni Fink MD Consult Discharge Plan - Plan [facility]errals: [facility] [Primary Care Provider] - (3) Chronic pain Qualifiers: Chronic pain type: other chronic pain Qualified Code(s): G89.29 - Other chronic pain (5) Anemia Qualifiers: Anemia type: unspecified type Qualified Code(s): D64.9 - Anemia, unspecified
[2018-03-20 08:47] LABS: Magnesium 1.6 mg/dL (1.6-2.6)
[2018-03-20 09:13] LABS: Folate > 22.3 ng/mL (3.0-16.0)
[2018-03-20 09:15] LABS: Vitamin B12 > 1500 pg/mL (250-1100)
[2018-03-20] MEDS: Ranolazine 500 MG TAB.ER.12H PO SCH ×2 (09:50→21:45)
[2018-03-20] MEDS: Multivit/Ca/Min/Fe/FA 1 TAB TABLET PO SCH (09:50)
[2018-03-20] MEDS: Aspirin Enteric Coated 325 MG Tablet PO SCH (09:51)
[2018-03-20] MEDS: Finasteride 5 MG TABLET PO SCH (09:51)
[2018-03-20] MEDS: Diltiazem CD (24hr) 180 MG CAPSULE PO SCH (09:51)
[2018-03-20] MEDS: Lisinopril 20 MG TABLET PO SCH (09:51)
[2018-03-20] MEDS: Venlafaxine XR (24 HR) 75 MG CAP.ER.24H PO SCH (09:51)
[2018-03-20] MEDS: Mirtazapine 15 MG TABLET PO SCH (21:45)
[2018-03-21] MEDS: Ipratropium/Albuterol Neb 3 ML IH SCH ×7 (00:16→23:37)
[2018-03-21] MEDS: MethylPREDNISolone 40 MG/ML VIAL IVP SCH (05:32)
[2018-03-21] MEDS: levETIRAcetam 250 MG TABLET PO SCH ×2 (05:32→18:17)
[2018-03-21 06:33] LABS: Basophils % 0.1 %; Eosinophils % 0.1 %; Hematocrit 26.1 % (37.5-50.1); Hemoglobin 8.7 g/dL (12.9-16.9); Immature Granulocytes % 0.9 % (0-4); Lymphocytes # 1.1 K/mcL (0.6-4.6); Lymphocytes % 13.1 %; Mean Corpuscular HGB Conc 33.3 g/dL (31.6-35.5); Mean Corpuscular Hemoglobin 37.5 pg (28.0-33.3); Mean Corpuscular Volume 112.5 fL (83.0-100.0); Mean Platelet Volume 11.4 fL (9.4-12.4); Monocytes # 1.2 K/mcL (0.0-1.3); Monocytes % 13.9 %; Neutrophils # 6.1 K/mcL (1.6-8.9); Platelet Count 205 K/mcL (140-400); Red Blood Count 2.32 M/mcL (4.19-5.50); Red Cell Distribution Width 16.7 % (11.5-14.5); Segmented Neutrophils % 71.9 %
[2018-03-21 06:52] LABS: BUN/Creatinine Ratio 26 (6-26); Blood Urea Nitrogen 21 mg/dL (8-23); Calcium 8.3 mg/dL (8.6-10.3); Carbon Dioxide 23 mEq/L (23-29); Chloride 110 mEq/L (98-107); Glucose 93 mg/dL (70-105); Osmolality,Calculated 289 (280-300); Potassium 4.4 mEq/L (3.5-5.1); Sodium 138 mEq/L (136-145); eGFR For Non-African Americans > 60 (> 60)
[2018-03-21 06:53] LABS: Anisocytosis 1+ (Not Present); Macrocytosis Present (Not Present); Platelet Estimate Normal (Normal)
[2018-03-21] MEDS: Finasteride 5 MG TABLET PO SCH (09:03)
[2018-03-21] MEDS: Ranolazine 500 MG TAB.ER.12H PO SCH ×2 (09:03→21:13)
[2018-03-21] MEDS: Aspirin Enteric Coated 325 MG Tablet PO SCH (09:03)
[2018-03-21] MEDS: Diltiazem CD (24hr) 180 MG CAPSULE PO SCH (09:03)
[2018-03-21] MEDS: Venlafaxine XR (24 HR) 75 MG CAP.ER.24H PO SCH (09:04)
[2018-03-21] MEDS: Multivit/Ca/Min/Fe/FA 1 TAB TABLET PO SCH (09:04)
[2018-03-21] MEDS: Lisinopril 20 MG TABLET PO SCH (09:04)
--- NOTE | 2018-03-21 11:11 | Internal Med Progress Note ---
Hospitalist Progress Note - Encounter Date of Encounter: 03/21/18 Time of Encounter: 10:50 - Subjective Interval History: Patient seen and examined at bedside Currently denies any pain or discomfort - More alert sitting up in bed eating breakfast- oriented to name/place Hospital summary PMH of COPD DM HLD HTN [place] ETOH abuse Admitted 03/17/2018 after experiencing seizure- new onset- [facility] , he takes methadone He is a heavy drinker - pint of liquor every day- had not drank in 2 days has gone through alcohol withdrawal in the past however has not had a seizure - MRI of head was negative- was seen by neurology placed on Keppra 500mg BID He has chronic pain and is multiple medications including Baclofen tylenol with codeine methadone at home- He was oversedated during admission, medications were held and altered, He has improved mentally, decreasing librium D/cd CIWA human services care specialist to discuss with possible placement at [place] - Exam Vitals: Temp Pulse Resp BP Pulse Ox 97.9 F 88 16 137/90 96 03/21/18 10:44 03/21/18 10:44 03/21/18 10:44 03/21/18 10:44 03/21/18 10:44 Exam: General appearance: Present: A/O X3 pleasant, no acute distress, answers questions appropriately Exam: see below - Head Head exam: Present: atraumatic, normal inspection - Eye Eye exam: Present: EOMI, PERRL. Absent: scleral icterus Pupils: Present: normal accommodation - ENT ENT exam: Present: mucous membranes dry, normal exam, normal oropharynx - Neck Neck exam general surgery: Present: full ROM, supple. Absent: tenderness, nuchal rigidity, thyromegaly - Respiratory Respiratory exam: Present: Wheezing bilaterally. Absent: chest wall tenderness , rales, respiratory distress, and rhonchi. - Cardiovascular Cardiovascular exam: Present: RRR, +S1, +S2. Absent: diastolic murmur, systolic murmur - GI/Abdominal GI/Abdominal exam: Present: normal bowel sounds. Absent: hepatomegaly, rebound , splenomegaly, tenderness - Extremities Exam Extremities exam: Present: normal capillary refill, warm, radial pulses palpable and symmetrical. Absent: calf tenderness, full ROM (LLE contracted, weak), tenderness - Back Exam Back exam: Absent: CVA tenderness (L), CVA tenderness (R) - Neurological Exam Neurological exam: Present: groggy, CN II-XII intact, motor sensory deficit ( LLE weakness-- chronic), oriented X3 - Psychiatric Psychiatric exam: Present: normal affect, normal mood - Skin Skin exam: Present: dry, intact, warm - Assessment and Plan (1) Seizure Current Visit: Yes Status: Acute Assessment and Plan: 1. Suspect alcohol withdrawal seizure given that last alcohol intake was 2 days prior to incident - no seizures at this time 2. Will place in seizure precautions. 3. Will place on CIWA protocol and schedule Librium to avoid further withdrawal seizures. 4. Patient received Keppra - will cont at this time per neurology neurology recommendations-Keppra 500mg BID 5. Neurology consulted and appreciate recommendations 6. MRI brain with no acute infarct no specific seizure focus identified (2) Alcoholism Current Visit: Yes Status: Chronic Assessment and Plan: 1. CIWA protocol ordered. 2. MVI/Thiamine/Folate ordered. 3. Librium will decrease (3) Chronic pain Current Visit: Yes Status: Chronic Assessment and Plan: 1. Patient is more alert - cont with methadone PRN- discontinue baclophen for now (4) DVT prophylaxis Current Visit: Yes Status: Acute Assessment and Plan: 1. SCD (5) Anemia Current Visit: Yes Status: Acute Assessment and Plan: Most likely chronic disease/alcoholism currently stable - cont iron supplement MVI DVT Prophylaxis: Lovenox - Time Spent with Patient Total time spent is greater than 50% in coordination of care (as documented) at patient's floor/unit and/or counseling patient: Internal Medicine: Result - Labs CBC & Chem 7: 03/21/18 04:19 03/21/18 04:19 Labs: Short CBC 03/21/18 Range/Units 04:19 WBC 8.5 (4.3-11.1) K/mcL Hgb 8.7 L (12.9-16.9) g/dL Hct 26.1 L (37.5-50.1) % Plt Count 205 (140-400) K/mcL Neutrophils # 6.1 (1.6-8.9) K/mcL BMP 03/21/18 04:19 Sodium 138 Potassium 4.4 Chloride 110 H Carbon Dioxide 23 BUN 21 Creatinine 0.80 Glucose 93 Calcium 8.3 L - ABG Interpretation ABG results: PT/INR, D-dimer PT 13.7 Seconds (9.4-12.1) H 03/17/18 06:47 Consult Discharge Plan - Plan [facility]errals: [facility] [Primary Care Provider] - (3) Chronic pain Qualifiers: Chronic pain type: other chronic pain Qualified Code(s): G89.29 - Other chronic pain (5) Anemia Qualifiers: Anemia type: unspecified type Qualified Code(s): D64.9 - Anemia, unspecified
[2018-03-21] MEDS: Mirtazapine 15 MG TABLET PO SCH (21:15)
[2018-03-22 04:27] LABS: Basophils % 0.3 %; Eosinophils % 0.3 %; Hematocrit 25.7 % (37.5-50.1); Hemoglobin 8.4 g/dL (12.9-16.9); Immature Granulocytes % 1.1 % (0-4); Lymphocytes # 1.3 K/mcL (0.6-4.6); Mean Corpuscular HGB Conc 32.7 g/dL (31.6-35.5); Mean Corpuscular Volume 113.2 fL (83.0-100.0); Mean Platelet Volume 10.9 fL (9.4-12.4); Monocytes # 0.9 K/mcL (0.0-1.3); Monocytes % 11.3 %; Neutrophils # 5.6 K/mcL (1.6-8.9); Platelet Count 239 K/mcL (140-400); Red Blood Count 2.27 M/mcL (4.19-5.50); Red Cell Distribution Width 16.8 % (11.5-14.5)
[2018-03-22] MEDS: Ipratropium/Albuterol Neb 3 ML IH SCH ×3 (04:32→11:42)
[2018-03-22 04:50] LABS: BUN/Creatinine Ratio 27 (6-26); Blood Urea Nitrogen 23 mg/dL (8-23); Calcium 8.8 mg/dL (8.6-10.3); Carbon Dioxide 27 mEq/L (23-29); Chloride 110 mEq/L (98-107); Glucose 113 mg/dL (70-105); Osmolality,Calculated 296 (280-300); Potassium 4.6 mEq/L (3.5-5.1); Sodium 141 mEq/L (136-145); eGFR For Non-African Americans > 60 (> 60)
[2018-03-22 04:53] LABS: Platelet Estimate Normal (Normal)
[2018-03-22 04:54] LABS: Anisocytosis 1+ (Not Present); Hypochromasia Present (Not Present); Macrocytosis Present (Not Present)
[2018-03-22] MEDS: levETIRAcetam 250 MG TABLET PO SCH (05:59)
[2018-03-22 07:49] VITALS: BP 131/76
[2018-03-22] MEDS: Lisinopril 20 MG TABLET PO SCH (08:36)
[2018-03-22] MEDS: Aspirin Enteric Coated 325 MG Tablet PO SCH (08:36)
[2018-03-22] MEDS: Ranolazine 500 MG TAB.ER.12H PO SCH (08:36)
[2018-03-22] MEDS: Venlafaxine XR (24 HR) 75 MG CAP.ER.24H PO SCH (08:36)
[2018-03-22] MEDS: Diltiazem CD (24hr) 180 MG CAPSULE PO SCH (08:36)
[2018-03-22] MEDS: Finasteride 5 MG TABLET PO SCH (08:36)
[2018-03-22] MEDS: Multivit/Ca/Min/Fe/FA 1 TAB TABLET PO SCH (08:37)
[2018-03-22] MEDS ORDERED: Thiamine (B-1) 100 MG TABLET PO SCH (09:00)
[2018-03-22] MEDS ORDERED: predniSONE 20 MG TABLET PO SCH (09:00)
[2018-03-22] MEDS ORDERED: Folic Acid 1 MG TABLET PO SCH (09:00)
--- NOTE | 2018-03-22 10:29 | Discharge Summary ---
- NOTES TO OUTPATIENT PROVIDER Notes to Outpatient Provider: f/u with PCP within a week. Orders not resulted at time of discharge: Pending orders 03/17/18 12:39 Occult Blood,Stool [BF] Routine Date of Encounter: 03/22/18 Time of Encounter: 10:25 - Discharge Diagnosis (1) Seizure Priority: Primary Status: Acute (2) Alcoholism Priority: Secondary Status: Chronic (3) Chronic pain Priority: Secondary Status: Chronic Qualifiers: Chronic pain type: other chronic pain Qualified Code(s): G89.29 - Other chronic pain (4) DVT prophylaxis Priority: Primary Status: Acute (5) Anemia Priority: Secondary Status: Chronic Qualifiers: Anemia type: unspecified type Qualified Code(s): D64.9 - Anemia, unspecified Hospital course: Mr. Soriano is a 73 year old male with PMH of COPD DM HLD HTN [facility] ETOH abuse Admitted 03/17/2018 after experiencing seizure- new onset- [facility] patient , he takes methadone He is a heavy drinker. had not drank in 2 days. has gone through alcohol withdrawal in the past however has not had a seizure. He has chronic pain and is multiple medications including Baclofen, tylenol with codeine, methadone at home. MRI was negative for structural abnormalities, neurology was consulted and patient was placed on Keppra. Patient had an no further seizure ever since. Neurology thinks the seizure was provocated by alcohol withdrawal. he was given Librium, his withdrawal symptoms have much improved, Librium was tapered and discontinued. he will be discharged home with with home health care and physical therapy today. He was instructed to continue taking vitamins including thiamine and folate. He was instructed not to cut down drinking too quickly. Information about alcohol cessation programs also were provided. Will follow-up with PCP within one week. Discharge discussed with: patient, family Time spent discussing smoking cessation with patient: more than 10 minutes - Time Spent with Patient Total time spent providing and/or coordinating discharge services: Greater than 30 minutes - Discharge Medications Prescriptions: Thiamine (B-1) [Vitamin B-1] 100 mg PO DAILY #30 tablet Home Medications: Acetaminophen w/Cod 300-30 mg [Tylenol w/Codeine #3] 1 each PO Q6HR 03/16/18 [ History] Aspirin Enteric Coated [Aspirin EC] 325 mg PO DAILY 03/16/18 [History] Atorvastatin Calcium [Lipitor] 20 mg PO HS 03/16/18 [History] Diltiazem HCl [Diltiazem 24Hr Cd] 180 mg PO DAILY 03/16/18 [History] Finasteride [Proscar] 5 mg PO DAILY 03/16/18 [History] Folic Acid 1 mg PO DAILY 03/16/18 [History] Furosemide [Lasix] 40 mg PO BID PRN 03/16/18 [History] Lisinopril [Zestril] 20 mg PO DAILY 03/16/18 [History] Methadone 10 mg PO Q8HR 03/16/18 [History] Mirtazapine [Remeron] 22.5 mg PO HS 03/16/18 [History] Omeprazole [PriLOSEC] 20 mg PO DAILY 03/16/18 [History] PARoxetine HCl [Paroxetine HCl] 30 mg PO DAILY 03/16/18 [History] Ranolazine [Ranexa] 500 mg PO BID 03/16/18 [History] Tamsulosin HCl [Flomax] 0.4 mg PO DAILY 03/16/18 [History] Venlafaxine HCl [Venlafaxine HCl ER] 75 mg PO DAILY 03/16/18 [History] clonazePAM [Clonazepam] 1 mg PO DAILY PRN 03/16/18 [History] Baclofen [Lioresal] 10 mg PO BID 03/17/18 [History] Ferrous Sulfate [Iron] 325 mg PO DAILY 03/17/18 [History] Lactobacillus Acidophilus [Acidophilus] 1 cap PO DAILY 03/17/18 [History] Melatonin 9 mg PO HS 03/17/18 [History] Multivitamin [One Daily Essential] 1 tab PO DAILY 03/17/18 [History] Thiamine (B-1) [Vitamin B-1] 100 mg PO DAILY #30 tablet 03/22/18 [Rx] Allergies/Adverse Reactions: 3 Allergy/AdvReac Type Severity Reaction Status Date / Time pregabalin [From Lyrica] Allergy Hives Verified 03/17/18 11:33 Date of admission: 03/17/18 17:25 Primary care physician: PCP [facility] Consults: 03/17/18 03:03 Consult to Physician [CONS] Routine Consulting Provider: Reagan Lechuga Reason for Consult: seizure; suspect alcohol withdrawal Call Completed: No Anticipated date of discharge: 03/22/18 - Constitutional Vitals: Temp Pulse Resp BP Pulse Ox 97.7 F 93 16 131/76 95 03/22/18 07:39 03/22/18 07:39 03/22/18 07:39 03/22/18 07:39 03/22/18 07:39 General appearance: Present: cooperative, A&O X 3, pleasant, no acute distress, answers questions appropriately Exam: PHYSICAL EXAMINATION: GENERAL APPEARANCE: The patient is alert, oriented and in no acute distress. HEENT: Head is normocephalic. The sinuses are nontender. Pupils are equal and reactive. The nares are patent. Oropharynx clear without lesions. NECK: Supple without lymphadenopathy. HEART: Regular rate and rhythm. LUNGS: No crackles or wheezes are heard. ABDOMEN: Soft, nontender, nondistended with good bowel sounds heard. Inguinal area is normal. EXTREMITIES: Without cyanosis, clubbing or edema. NEUROLOGICAL: Gross nonfocal. SKIN: Warm and dry without any rash. - Patient Status Disposition: Home Health Service Condition: Fair Functional capacity at discharge: uses cane/walker Overall status at discharge: patient is progressing back to baseline - Discharge Instructions Instructions: Thiamine (Vitamin B-1) (By mouth), Non-epileptic Seizures (DC) Follow Up With: [facility] [Primary Care Provider] - - Diet and Activity Activity: increase activity as tolerated Diet: advance to your usual diet - VTE Documentation of Mechanical Device: Intermittent pneumatic compression device
--- NOTE | 2018-03-22 10:31 | Physician Discharge Referral ---
Home Health/Hosp Referral Info Transfer to: Home Health Provider in Charge Post Discharge: PCP - Diagnosis (1) Seizure Priority: Primary Status: Acute (2) Alcoholism Priority: Secondary Status: Chronic (3) Chronic pain Priority: Secondary Status: Chronic (4) DVT prophylaxis Priority: Primary Status: Acute (5) Anemia Priority: Secondary Status: Chronic - Respiratory Orders Smoking Cessation: Smoking cessation has been advised. For more information, call the [place] Tobacco Quit Line at 7-077-OYSP-NOW. - Diet/Nutrition Diet/Nutrition Orders: Regular - Activity Activity Orders: Up ad judy - Services Needed Following services are medically necessary services: Home Health Aide, Physical Therapy, Occupational Therapy - Transfer Medications Prescriptions: Thiamine (B-1) [Vitamin B-1] 100 mg PO DAILY #30 tablet Home Medications: Acetaminophen w/Cod 300-30 mg [Tylenol w/Codeine #3] 1 each PO Q6HR 03/16/18 [ History] Aspirin Enteric Coated [Aspirin EC] 325 mg PO DAILY 03/16/18 [History] Atorvastatin Calcium [Lipitor] 20 mg PO HS 03/16/18 [History] Diltiazem HCl [Diltiazem 24Hr Cd] 180 mg PO DAILY 03/16/18 [History] Finasteride [Proscar] 5 mg PO DAILY 03/16/18 [History] Folic Acid 1 mg PO DAILY 03/16/18 [History] Furosemide [Lasix] 40 mg PO BID PRN 03/16/18 [History] Lisinopril [Zestril] 20 mg PO DAILY 03/16/18 [History] Methadone 10 mg PO Q8HR 03/16/18 [History] Mirtazapine [Remeron] 22.5 mg PO HS 03/16/18 [History] Omeprazole [PriLOSEC] 20 mg PO DAILY 03/16/18 [History] PARoxetine HCl [Paroxetine HCl] 30 mg PO DAILY 03/16/18 [History] Ranolazine [Ranexa] 500 mg PO BID 03/16/18 [History] Tamsulosin HCl [Flomax] 0.4 mg PO DAILY 03/16/18 [History] Venlafaxine HCl [Venlafaxine HCl ER] 75 mg PO DAILY 03/16/18 [History] clonazePAM [Clonazepam] 1 mg PO DAILY PRN 03/16/18 [History] Baclofen [Lioresal] 10 mg PO BID 03/17/18 [History] Ferrous Sulfate [Iron] 325 mg PO DAILY 03/17/18 [History] Lactobacillus Acidophilus [Acidophilus] 1 cap PO DAILY 03/17/18 [History] Melatonin 9 mg PO HS 03/17/18 [History] Multivitamin [One Daily Essential] 1 tab PO DAILY 03/17/18 [History] Thiamine (B-1) [Vitamin B-1] 100 mg PO DAILY #30 tablet 03/22/18 [Rx] Allergies/Adverse Reactions: 3 Allergy/AdvReac Type Severity Reaction Status Date / Time pregabalin [From Lyrica] Allergy Hives Verified 03/17/18 11:33 Certification: Further, I certify that my clinical findings support that this patient is homebound (i.e. absences from home require considerable and taxing effort and are for medical reasons or mu-ism services or infrequently or short duration when for other reasons) because: Homebound Reason: Altered mental status requiring supervision when leaving home Attestation: My signature below is to certify that this patient is under my care and that I, or nurse practitioner, or a physician's assistant brand manager working with me, has a face-to -face encounter with this patient.
== END 2018-03-22 11:53 | disposition home health service (06) | DRG 897 ==
LOC: 3BNU
PROVIDERS: ADMIT Internal Medicine; ATTEND Internal Medicine